=== PATIENT | female | born 1965 | race Caucasian/White ===

== ENCOUNTER 2017-12-11 19:45 | Emergency (ER) | payer MEDICAID ==
[~2017-12-11] VITALS: Ht 160 cm; Wt 54.2 kg
[2017-12-11 23:11] VITALS: BP 141/70
== END 2017-12-11 23:11 | disposition home or self-care (01) ==
LOC: ED 19:45
DX: S30.0XXA Contusion of lower back and pelvis, initial encounter (principal); Z90.710 Acquired absence of both cervix and uterus; Z90.49 Acquired absence of other specified parts of digestive tract; V49.88XA Car occupant (driver) (passenger) injured in other specified transport accidents, initial encounter; Y93.89 Activity, other specified; Y92.89 Other specified places as the place of occurrence of the external cause; Y99.8 Other external cause status

== ENCOUNTER 2019-05-24 23:02 | Emergency (ER) | payer MEDICAID ==
[~2019-05-24] VITALS: Ht 157.5 cm; Wt 54.6 kg
[2019-05-24 23:37] VITALS: Ht 157.5 cm; Wt 54.6 kg
[2019-05-25 01:55] VITALS: BP 134/61
[2019-05-25 03:20] LABS: UA SPECIFIC GRAVITY <=1.005 (1.005-1.035); microscopic required? YES; urine erythrocyte NEGATIVE (NEGATIVE)
== END 2019-05-25 01:55 | disposition home or self-care (01) ==
LOC: ED 23:02
PROVIDERS: Specialist
DX: N39.0 Urinary tract infection, site not specified (principal); N76.0 Acute vaginitis; Z90.710 Acquired absence of both cervix and uterus